=== PATIENT | female | born 1980 | race Caucasian/White ===

== ENCOUNTER 2017-04-08 15:57 | Emergency (ER) | payer MEDICAID ==
[~2017-04-08] VITALS: Ht 167.6 cm; Wt 52.2 kg
--- NOTE | 2017-04-08 16:10 | NUR ---
PT TO ER BED 10. HERE FOR MEDICAL AND PSYCH EVAL. PT IS C/O DEPRESSION AND IS FEELING SUICIDAL. DENIES ANY PLAN AT THIS TIME. AWAITING MD BROWN.
--- NOTE | 2017-04-08 16:50 | NUR ---
BRITTA MONITORING COORDINATOR AT BEDSIDE FOR EVAL.
--- NOTE | 2017-04-08 16:55 | NUR ---
Eliazar ramirez in [facility] - 04/08/17 at 1656 by HERACLIO PAINT PREP TECHNICIAN AT BEDSIDE FOR LUIGIAL.
--- NOTE | 2017-04-08 16:55 | NUR ---
BIT SANDER AT BEDSIDE FOR EVAL.
--- NOTE | 2017-04-08 16:55 | NUR ---
[employer] LAW CLERK AT BEDSIDE FOR BLOOD DRAW.
[2017-04-08 17:01] LABS: BASOPHILS # (AUTO) 0.1 /CMM (0.0-0.2); BASOPHILS % (AUTO) 0.6 % (0.0-2.0); EOSINOPHILS # (AUTO) 0.1 /CMM (0.0-0.7); EOSINOPHILS % (AUTO) 1.3 % (0.0-6.0); HEMATOCRIT 33 % (33-45); HEMOGLOBIN 11.3 g/dL (11.5-14.8); LYMPHOCYTES # (AUTO) 2.2 /CMM (0.8-4.8); LYMPHOCYTES % (AUTO) 24.2 % (20.0-44.0); MEAN CORPUSCULAR HEMOGLOBIN 30 PG (26.0-33.0); MEAN CORPUSCULAR HGB CONC 34 g/dl (31.0-36.0); MEAN CORPUSCULAR VOLUME 87 fL (82-100); MONOCYTES # (AUTO) 0.5 /CMM (0.1-1.30); MONOCYTES % (AUTO) 5.4 % (2.0-12.0); NEUTROPHILS # (AUTO) 6.2 /CMM (1.8-8.9); NEUTROPHILS % (AUTO) 68.5 % (43.0-81.0); PLATELET COUNT (AUTO) 255 /CMM (150-450); RDW COEFFICIENT OF VARIATION 13.2 (11.5-15.0); RED BLOOD CELL COUNT(AUTO) 3.79 MIL/uL (4.0-5.2); WHITE BLOOD COUNT (AUTO) 9.1 K/uL (4.3-11.0)
[2017-04-08 17:18] LABS: CALCIUM, SERUM 8.5 mg/dL (8.5-10.1); CARBON DIOXIDE 27 mmol/L (21-32); CHLORIDE 105 mmol/L (98-107); CREATININE 0.6 mg/dL (0.6-1.3); GLUCOSE 114 mg/dL (74-106); POTASSIUM 3.6 mmol/L (3.5-5.1); SODIUM SERUM 139 mmol/L (136-145); UREA NITROGEN, BLOOD 11 mg/dL (7-18)
--- NOTE | 2017-04-08 17:21 | NUR ---
DEBORAH RN,CLINICAL TRAINING COORDINATOR CALLED FOR EVAL
[2017-04-08 17:31] LABS: ALANINE AMINOTRANSFERASE 23 U/L (12-78); ALBUMIN 3.9 g/dL (3.4-5.0); ALKALINE PHOSPHATASE 46 U/L (46-116); ASPARTATE AMINOTRANSFERASE 24 U/L (15-37); BILIRUBIN,TOTAL 0.1 mg/dL (0.2-1.0); TOTAL PROTEIN, SERUM 7.3 g/dL (6.4-8.2)
[2017-04-08 17:32] LABS: SALICYLATE 2.6 mg/dL (2.8-20.0)
[2017-04-08 17:33] LABS: ACETAMINOPHEN < 2 ug/ml (10-30); ALCOHOL, BLOOD < 3 mg/dL (0-0)
[2017-04-08 18:10] LABS: APPEARANCE,URINE Clear (CLEAR); BILIRUBIN,URINE Negative (NEGATIVE); BLOOD, URINE Trace-lysed Ery/uL (NEGATIVE); COLOR,URINE Yellow (YELLOW); KETONES,URINE Negative (NEGATIVE); LEUKOCYTE ESTERASE ,URINE Negative (NEGATIVE); NITRITE, URINE Negative (NEGATIVE); PH,URINE 5.5 (5.0-8.0); PROTEIN,URINE Negative (NEGATIVE); UGLUCOSE Negative (NEGATIVE); UROBILINOGEN,URINE 0.2 EU/dL (0.2)
[2017-04-08 18:30] LABS: BACTERIA,URINE Few /HPF (None Seen); SQUAMOUS EPITHELIAL CELL,UR Moderate /HPF (None Seen); WBC,URINE 0-2 /HPF (0-3)
--- NOTE | 2017-04-08 18:30 | NUR ---
ARNULFO RN AT BEDSIDE FOR EVAL.
[2017-04-08 20:15] VITALS: BP 131/70
--- NOTE | 2017-04-08 21:22 | NUR ---
[facility] ETA 2330. TRANSFER# [id number]
--- NOTE | 2017-04-08 23:12 | NUR ---
[facility] CALLED ETA EXTENDED 30 MIN.
--- NOTE | 2017-04-08 23:37 | NUR ---
REPORT TO CHARGE NURSE EBENEZER FOR PEDRO.
--- NOTE | 2017-04-08 23:50 | NUR ---
SPOKE WITH [facility] DISPATCH ETA X 35 MINUTES FROM NOW
--- NOTE | 2017-04-09 01:00 | NUR ---
klarissa at bedside for transport to [facility].
== END 2017-04-09 01:00 ==
LOC: ER 15:58
DX: M79.641 Pain in right hand (principal); R45.851 Suicidal ideations; F12.10 Cannabis abuse, uncomplicated
CPT/HCPCS: 36415; 80048-TC; 80076-TC; 80305; 81000-TC; 84703-TC; 85025-TC; A4606; G0480; Z7610